=== PATIENT | female | born 1965 | race Hispanic/Latino ===

== ENCOUNTER 2020-11-29 20:57 | Emergency (ER) | payer BC ==
[2020-11-29] MEDS ORDERED: HYDROCODONE/APAP 5/325 MG TAB ONE (21:57)
[2020-11-29] MEDS ORDERED: MORPHINE 2 MG/ML SYR ONE ×2 (22:18→22:55)
--- NOTE | 2020-11-29 22:53 | ER ---
Nurse[facility] Notes [facility] Name: Yoli Kapadia Age: 55 yrs Sex: Female : 1965 Arrival Date: 11/29/2020 Time: 20:58 Bed 5 Private MD: Diagnosis: Left Distal Radius Fracture Presentation: 11/29 21:21 Chief complaint: Patient states: Fall in the shower at 2030 tonight. L wrist pain and ll1 swelling since. Pain radiates up entire L arm. + hit head, but denies LOC. Coronavirus screen: Client denies travel out of the [place] in the last 14 days. At this time, the client does not indicate any symptoms associated with coronavirus-19. Ebola Screen: Patient denies travel to an Ebola-affected area in the 21 days before illness onset. Initial Sepsis Screen: Does the patient meet any 2 criteria? No. Patient's initial sepsis screen is negative. Does the patient have a suspected source of infection? Yes: Bone or joint infection. Risk Assessment: Do you want to hurt yourself or someone else? Patient reports no desire to harm self or others. Onset of symptoms was November 29, 2020. 21:21 Method Of Arrival: Wheelchair ll1 21:21 Acuity: MAGNUS 3 ll1 Triage Assessment: 21:45 General: Appears uncomfortable. Injury Description: FALL, SWELLING TO THE LEFT WRIST. rv Historical: - Allergies: 21:23 No Known Allergies; ll1 - PMHx: 21:23 High Cholesterol; ll1 - PSHx: 21:23 endometriosis sx; ll1 - Immunization history:: Flu vaccine is up to date. - Social history:: Smoking status: Patient denies any tobacco usage or history of. Screenin:45 Abuse screen: Denies threats or abuse. Denies injuries from another. Nutritional rv screening: No deficits noted. Tuberculosis screening: No symptoms or risk factors identified. Fall Risk None identified. Assessment: 21:44 General: Appears uncomfortable, Behavior is cooperative, crying. Pain: Complains of rv pain in left wrist. Neuro: Level of Consciousness is awake, alert, obeys commands, Oriented to person, place, time, situation. Cardiovascular: Patient's skin is warm and dry. Respiratory: Airway is patent. Derm: Skin is intact. Musculoskeletal: Swelling present in left wrist. 22:40 Reassessment: Verbal order for Morphine 2mg IV now before splinting by TANJA Hernandez. lp1 Vital Signs: 21:21 BP 126 / 72; Pulse 67; Resp 17; Temp 98.9; Pulse Ox 100% ; Weight 53.52 kg; Height 5 ll1 ft. 1 in. (154.94 cm); Pain 10/10; 23:13 BP 121 / 76; Pulse 68; Resp 16; Temp 98.5; Pulse Ox 100% on R/A; rv 21:21 Body Mass Index 22.30 (53.52 kg, 154.94 cm) ll1 ED Course: 20:58 Patient arrived in ED. cl3 21:22 Triage completed. ll1 21:23 Arm band placed on. ll1 21:32 Satinder Curtis, GEOVANNY is Primary Nurse. rv 21:39 Bert Briscoe PA is PHCP. cp 21:39 Ash Camp MD is Attending Physician. cp 21:45 Patient has correct armband on for positive identification. Pulse ox on. NIBP on. rv 22:01 Inserted saline lock: 22 gauge in right hand, using aseptic technique. rv 22:10 Wrist Left (3 View) XRAY In Process Unspecified. EDMS 22:51 Monty Perez MD is Referral Physician. cp 23:05 Orthoglass splint: Sugar tong splint applied on Sling applied to left arm. oe 23:12 No provider procedures requiring assistance completed. IV discontinued, intact, rv bleeding controlled, No redness/swelling at site. Pressure dressing applied. Administered Medications: 21:43 Drug: [place] (HYDROcodone-acetaminophen) 5 mg-325 mg 1 tabs Route: PO; rv 23:13 Follow up: Response: No adverse reaction; RASS: Alert and Calm (0) rv 21:53 CANCELLED (Physician Discretion): fentaNYL (PF) 25 mcg IVP once; RASS on ADMIN: cp Combtv4, Very Agttd3, Agttd2, Rstlss1, AlertClm0, Drwsy-1, Lt Sdtn-2, Mod Sdtn-3, Dp Sdtn-4, UnArsble-5 22:02 Drug: morphine 2 mg Route: IVP; Site: right hand; rv 23:13 Follow up: Response: No adverse reaction; RASS: Alert and Calm (0) rv 22:44 Drug: morphine 2 mg Route: IVP; Site: right hand; lp1 23:13 Follow up: Response: No adverse reaction; Marked relief of symptoms; Pain is decreased; rv RASS: Alert and Calm (0) Outcome: 22:52 Discharge ordered by MD. cp 23:12 Discharged to home ambulatory. rv 23:12 Condition: good 23:12 Discharge instructions given to patient, Instructed on discharge instructions, follow up and referral plans. medication usage, Demonstrated understanding of instructions, follow-up care, medications, splint care, Prescriptions given X 1. 23:13 Patient left the ED. rv Signatures: Dispatcher [employer] EDMS Chloe Arceo RN RN lp1 Bert Briscoe PA PA cp Espinosa, Orlando oe Vicente, Ronaldo, RN RN rv Reagan Blankenship cl3 Agnes Blankenship RN RN ll1
--- NOTE | 2020-11-29 22:53 | EDPHYS ---
Physician Documentation [facility] Name: Yoli Kapadia Age: 55 yrs Sex: Female : 1965 Arrival Date: 11/29/2020 Time: 20:58 Bed 5 Private MD: ED Physician Ash Camp HPI: 11/29 21:55 This 55 yrs old Female presents to ER via Wheelchair with complaints of Wrist cp Injury. 21:55 The patient or guardian reports decreased range of motion, injury, pain, swelling, cp tenderness. The complaints affect the left wrist diffusely. Context: The problem was sustained at home, resulted from a fall, while in shower. Onset: The symptoms/episode began/occurred tonight. 21:55 Associated signs and symptoms: Pertinent negatives: cyanosis distally, decreased cp sensation distally. 21:55 Patient reports she struck back of head but no LOC and denies headache. cp Historical: - Allergies: 21:23 No Known Allergies; ll1 - PMHx: 21:23 High Cholesterol; ll1 - PSHx: 21:23 endometriosis sx; ll1 - Immunization history:: Flu vaccine is up to date. - Social history:: Smoking status: Patient denies any tobacco usage or history of. ROS: 21:56 Constitutional: Negative for fever. cp 21:56 Cardiovascular: Negative for chest pain. 21:56 Respiratory: Negative for cough, shortness of breath. 21:56 Abdomen/GI: Negative for abdominal pain, nausea, vomiting, and diarrhea. 21:56 MS/extremity: Positive for injury or acute deformity, decreased range of motion, swelling, tenderness, of the left wrist. 21:56 Neuro: Negative for altered mental status, headache, loss of consciousness, syncope. 21:56 All other systems are negative. Exam: 21:57 Head/Face: Normocephalic, atraumatic. cp 21:57 Constitutional: The patient appears in no acute distress, alert, awake, non-toxic, well developed, well nourished. 21:57 Eyes: Pupils: equal, round, and reactive to light and accomodation, Conjunctiva: normal. 21:57 Neck: C-spine: vertebral tenderness, is not appreciated, crepitus, is not appreciated, ROM/movement: is normal, is supple, without pain, no range of motions limitations. 21:57 Chest/axilla: Inspection: normal. 21:57 Cardiovascular: Rate: normal. 21:57 Respiratory: the patient does not display signs of respiratory distress, Respirations: normal, no use of accessory muscles, no retractions, labored breathing, is not present. 21:57 Back: pain, is absent, ROM is normal, vertebral tenderness, is not appreciated. 21:57 Musculoskeletal/extremity: Extremities: grossly normal except: noted in the left wrist: decreased ROM, deformity, pain, swelling, tenderness, Perfusion: the extremity is normally perfused throughout, Severe pain noted. Vital Signs: 21:21 BP 126 / 72; Pulse 67; Resp 17; Temp 98.9; Pulse Ox 100% ; Weight 53.52 kg; Height 5 ll1 ft. 1 in. (154.94 cm); Pain 10/10; 23:13 BP 121 / 76; Pulse 68; Resp 16; Temp 98.5; Pulse Ox 100% on R/A; rv 21:21 Body Mass Index 22.30 (53.52 kg, 154.94 cm) ll1 Procedures: 23:15 Splinting: Splint applied to left wrist using Orthoglass splint, sling, sugar tong cp type. applied by tech. Examined by me, post splint application: neurovascular intact, Patient tolerated well. MDM: 21:47 Patient medically screened. cp 22:00 Differential diagnosis: dislocation, open fracture, closed fracture, multiple trauma. cp 22:51 Data reviewed: vital signs, nurses notes, radiologic studies, plain films. cp 22:51 Test interpretation: by ED physician or midlevel provider: xrays of left wrist show cp mildly displaced distal left radius fracture with left ulna styloid fracture. Counseling: I had a detailed discussion with the patient and/or guardian regarding: the historical points, exam findings, and any diagnostic results supporting the discharge/admit diagnosis, radiology results, the need for outpatient follow up, for definitive care, a orthopedic surgeon, to return to the emergency department if symptoms worsen or persist or if there are any questions or concerns that arise at home. Response to treatment: the patient's symptoms have markedly improved after treatment, and as a result, I will discharge patient. 22:55 ED course: No results found on website of [facility] prescription monitor program. cp 11/29 21:42 Order name: Wrist Left (3 View) XRAY bb 11/29 21:53 Order name: IV; Complete Time: 22:01 cp Administered Medications: 21:43 Drug: [place] (HYDROcodone-acetaminophen) 5 mg-325 mg 1 tabs Route: PO; rv 23:13 Follow up: Response: No adverse reaction; RASS: Alert and Calm (0) rv 21:53 CANCELLED (Physician Discretion): fentaNYL (PF) 25 mcg IVP once; RASS on ADMIN: cp Combtv4, Very Agttd3, Agttd2, Rstlss1, AlertClm0, Drwsy-1, Lt Sdtn-2, Mod Sdtn-3, Dp Sdtn-4, UnArsble-5 22:02 Drug: morphine 2 mg Route: IVP; Site: right hand; rv 23:13 Follow up: Response: No adverse reaction; RASS: Alert and Calm (0) rv 22:44 Drug: morphine 2 mg Route: IVP; Site: right hand; lp1 23:13 Follow up: Response: No adverse reaction; Marked relief of symptoms; Pain is decreased; rv RASS: Alert and Calm (0) Disposition: 23:15 Chart complete. 11/30 05:16 Co-signature as Attending Physician, Ash Camp MD. [facility] Disposition: 11/29/20 22:52 Discharged to Home. Impression: Left Distal Radius Fracture. - Condition is Stable. - Discharge Instructions: Wrist Fracture Treated With Immobilization. - Prescriptions for Tylenol- Codeine #3 300-30 mg Oral Tablet - take 2 tablets by ORAL route every 4-6 hours As needed; 20 tablet. - Medication Reconciliation Form, Thank You Letter, Antibiotic Education, Prescription Opioid Use form. - Follow up: Monty Perez MD; When: 2 - 3 days; Reason: Recheck today's complaints. - Problem is new. - Symptoms have improved. Signatures: Dispatcher [employer] Deysi Chandra RN RN bb Chloe Arceo RN RN lp1 Bert Briscoe PA PA cp Satinder Curtis RN RN rv Agnes Blankenship RN RN 1 Ash Camp MD MD 7 Corrections: (The following items were deleted from the chart) 11/29 21:53 21:53 fentaNYL (PF) 25 mcg IVP once; RASS on ADMIN: Combtv4, Very Agttd3, Agttd2, cp Rstlss1, AlertClm0, Drwsy-1, Lt Sdtn-2, Mod Sdtn-3, Dp Sdtn-4, UnArsble-5 ordered. cp 23:13 22:52 11/29/2020 22:52 Discharged to Home. Impression: Left Distal Radius Fracture. rv Condition is Stable. Forms are Medication Reconciliation Form, Thank You Letter, Antibiotic Education, Prescription Opioid Use. Follow up: Monty Perez; When: 2 - 3 days; Reason: Recheck today's complaints. Problem is new. Symptoms have improved. cp
[2020-11-30 04:10] VITALS: O2SAT 100
[2020-11-30 04:12] VITALS: BP 121/76; TEMP 98.5
--- NOTE | 2020-12-01 11:59 | RAD REPORT ---
EXAM DESCRIPTION: RAD - Wrist Left 3 View - 11/29/2020 10:10 pm CLINICAL HISTORY: Pain;Deformity. COMPARISON: None. TECHNIQUE: Three views of the left wrist: PA, oblique, and lateral. FINDINGS: Acute mildly displaced distal radius fracture. No obvious intraarticular extension. Acute minimally displaced ulnar styloid process fracture. Mild ulnar positive variance by 0.2 cm. Osteopeni a. IMPRESSION: Acute mildly displaced distal radius and ulnar styloid process fractures. Osteopenia. Electronically signed by: Ami Lange MD 11/29/2020 10:37 PM CDT Due to temporary technical issues with the PACS/Fluency reporting system, reports are being signed by the in house radiologist without review as a courtesy to ensure prompt reporting. The interpreting r adiologist is fully responsible for the content of the report.
== END 2020-11-29 23:13 | disposition home or self-care (01) ==
LOC: ER 20:57
PROC: 2W3DX1Z Immobilization of Left Lower Arm using Splint (ICD-10-PCS; principal; 2020-11-29)
DX: S52.502A Unspecified fracture of the lower end of left radius, initial encounter for closed fracture (principal); W19.XXXA Unspecified fall, initial encounter; Y93.E1 Activity, personal bathing and showering; Y92.002 Bathroom of unspecified non-institutional (private) residence as the place of occurrence of the external cause
CPT/HCPCS: 73110; 29125; J2270 ×2; 96374; 99284

== ENCOUNTER 2022-04-10 10:45 | Emergency (ER) | payer BC ==
--- OUTSIDE RECORDS SUMMARY | 2022-04-10 10:48 | XMS REPORT | Continuity of Care Document ---
:1965 Author Organization [facility] t Address [address] [place] [address] [address] [place] [address] Care Team Providers Name Role Phone Moises Priest Attending Clinician Payers Payer Name Policy Type Policy Number Effective Date Expiration Date S ource Problems Condition Condition Condition Status Onset Resolution Last Treating Co mments Source Name Details Category Date Date Treatment Clinician Date Recurrent Recurrent Disease Active 2011-09 [facility] UTI UTI 0-09 College 00:00: of 00 Medicin e Chronic Chronic Disease Active [facility] interstiti interstiti 7-10 Co llege al al 00:00: of cystitis cystitis 00 Medici n e Chronic Chronic Disease Active [facility] interstiti interstiti 6-05 Co llege al al 00:00: of cystitis cystitis 00 Medici n e Urinary Urinary Disease Active [facility] tract tract 4-03 College infection, infection, 00:00: of site not site not 00 Medici n specified specified e Recurrent Recurrent Disease Active [facility] UTI UTI 2-16 College 00:00: of 00 Medicin e Bilateral Bilateral Disease Active [facility] flank pain flank pain 2-16 Co llege 00:00: of 00 Medicin e Allergies, Adverse Reactions, Alerts This patient has no known allergies or adverse reactions. Social History Social Habit Start Date Stop Date Quantity Comments Source Alcohol intake [facility] Sex Assigned At F [facility] Smoking Status Start Date Stop Date Source Never smoker [facility] o f [facility] Medications Ordered Filled Start Stop Current Ordering Indication Dosage Frequency Signature Comments Components Source Medication Medication Date Date Medication? Clinician (SIG) Name Name ranitidine 2019 2019- No [id number] 75mg Take 75 mg [facility] (ACID 04-27 by mouth [employer]) 75 16:05: 00:00 two times of MG tablet 16 :00 daily. Medicin e nitrofurant Yes 100mg Take 1 Cap Mike oin, 8-23 by mouth [place] 00:00: two times o f l-monohydra 00 daily. Medici n te, e (MACROBID) [address] 2 g Philipp gurdeep (ESTRACE 04-27 vaginally [facility] VAGINAL) 00:00: every day of 0.1 MG/GM 00 for the Medicin vaginal first 2 e cream weeks then apply 2g vaginally two times per week after. nitrofurant Yes Take one Ba ylor oin, 23 tablet by [place] 00:00: mouth of l-monohydra 00 after Medicin te, intercours e (MACROBID) e 100 MG capsule sulfamethox 2017-09 2019- No [id number] 1{tbl} Take 1 Tab Mike azole-trime 09-10 by mouth [facility] thoprim 00:00: 00:00 two times of (BACTRIM 00 :00 daily. Medicin DS) 800-160 e MG per tablet Vitamin E 2017-09 Yes [id number] Take by [facility] 400 UNIT 1 mouth. [place] TABS 15:53: of 38 Medicin e estradiol 2017-09 2019- No [id number] 1g Place 1 g Mike (ESTRACE 09-05 vaginally [facility] VAGINAL) 00:00: 00:00 3 times of 0.1 MG/GM 00 :00 weekly. Medicin vaginal e cream Cholecalcif Yes [id number] Take by [facility] sofi 6-30 mouth. [place] (VITAMIN 15:19: of D3) 1000 53 Medicin UNIT TABS e nitrofurant 2011-09 2019- No [id number] 50mg Take 1 Cap Mike oin 004-27 by mouth [place] (MACRODANTI 00:00: 00:00 at of N) 50 MG 00 :00 bedtime. Medicin capsule e Silodosin Yes [id number] 8mg Take 8 mg [facility] (RAPAFLO) 8 7-10 by mouth [facility] MG CAPS 00:00: daily. of 00 Medicin e Silodosin 8 Yes [id number] 1{capsu Take 1 Cap [facility] MG CAPS 02-07 le} by [facility] 00:00: at of 00 bedtime. Medicin e hydrOXYzine 2019- No [id number] 25mg Take 1 Tab [facility] (ATARAX) 25 02-07 by mouth [facility] MG tablet 00:00: 00:00 at of 00 :00 bedtime. Medicin e gabapentin 2019- No [id number] 100mg Take 1 Cap [facility] (NEURONTIN) 02-07 by mouth 3 C ollege 100 MG 00:00: 00:00 times of capsule 00 :00 daily. Medicin e nitrofurant 2019- No [id number] 50mg Take 1 Cap Mike oin 12-06 by [facility] (MACRODANTI 00:00: 00:00 at of N) 50 MG 00 :00 bedtime. Medicin capsule e Meth-Hyo-M 2019- No [id number] 60mg Take 60 mg [facility] Bl-Na 12-06 by [facility] Phos-Ph Vincent 00:00: 00:00 two times of (MAURY) 120 00 :00 daily. Medicin MG CAPS e nitrofurant 2019- No [id number] 100mg Take 1 Cap Mike oin, 11-29 by mouth. [place] macro[facility]a 00:00: 00:00 1 cap by o f l-monohydra 00 :00 mouth Medicin te, daily. e (MACROBID) 100 MG capsule sulfamethox 2019- No 1{tbl} Take 1 Tab [facility] azole-trime 10-29 by mouth [facility] thoprim 00:00: 00:00 two times of (BACTRIM 00 :00 daily. Medicin DS) 800-160 e MG per tablet Vital Signs Vital Name Observation Time Observation Value Comments Source Body height 2019-04-27 16:04:00 154.9 cm [facility] Body weight 2019-04-27 16:04:00 49.896 kg [facility] BMI 2019-04-27 16:04:00 20.78 kg/m2 [facility] Procedures This patient has no known procedures. Plan of Care Planned Activity Planned Date Details Comments Source Future Scheduled [facility]: [facility]code = of Medicine 84027-0] Future Scheduled URINE CULTURE [code Ordered: 04/27/20 19 [facility] Test = 630-4] of Medicine Future Scheduled COLON CANCER [facility] Test SCREENING: of Medicine COLONOSCOPY [code = COLON CANCER SCREENING: COLONOSCOPY] Future Scheduled TETANUS SHOT [facility] Test (ADULT) [code = of Medicine TETANUS SHOT (ADULT)] Future Scheduled HEPATITIS C [facility] Test SCREENING [code = of Medicin e HEPATITIS C SCREENING] Future Scheduled HIV SCREENING [code [facility] or [place] Test = HIV SCREENING] of Medicine Future Scheduled CERVICAL CANCER [facility] C ollege Test SCREENING 3 YEAR of Medicine FOLLOW UP [code = CERVICAL CANCER SCREENING 3 YEAR FOLLOW UP] Future Scheduled FLU VACCINE > 6 [facility] C ollege Test MONTHS [code = FLU of Medici ne VACCINE > 6 MONTHS] Future Scheduled MAMMOGRAM ANNUAL [facility] Test [code = MAMMOGRAM of Medicin e ANNUAL] Future Scheduled CT ABDOMEN PELVIS W 1 Occurrences [facility] Test WO CONTRAST [code = starting 04/27/2019 o f Medicine 04116-8] until 11/26/2019 Encounters Start End Encounter Admission Attending Care Care Encounter Source Date/Time Date/Time Type Type Clinicians Facility Department ID 2019-04-27 2019-04-27 Office VANI Wilson [id number] [facility] 10:33:28 11:03:28 Visit Basil AMBULATOR [id number] College Y [id number] of [id number] Medi jose 300 e Results This patient has no known results.
[2022-04-10] MEDS ORDERED: MAGNES/ALUMIN/SIMET 30ML UCUP ONE (11:43)
[2022-04-10] MEDS ORDERED: LIDOCAINE VISCOUS 2% SOLN 15 ML UDC ONE (11:43)
[2022-04-10] MEDS ORDERED: dexAMETHasone 10 MG/ML VIAL ONE (11:43)
[2022-04-10] MEDS ORDERED: ONDANSETRON 4 MG/2 ML VIAL ONE (11:43)
[2022-04-10] MEDS ORDERED: KETOROLAC 30 MG/ML INJ ONE (11:43)
[2022-04-10] MEDS ORDERED: NA CHLORIDE 0.9% 1,000 ML ONE (11:44)
[2022-04-10 11:58] LABS: Urine Blood Trace-intact (Negative); Urine Glucose Negative (Negative); Urine Protein Negative (Negative); Urine pH 6.5 (5.0-7.0)
[2022-04-10 12:01] LABS: Hematocrit 41.7 % (36.0-45.0); Lymphocytes % 47.6 % (15.3-44.8); MCV 87.1 fL (80-100); MPV 8.2 fL (7.6-11.3); RBC Red Blood Cell Count 4.78 M/uL (3.86-4.86)
[2022-04-10 12:09] LABS: Bilirubin Total 0.5 mg/dL (0.2-1.0); Potassium 3.8 mmol/L (3.5-5.1); Protein, Total 8.2 g/dL (6.4-8.2)
--- NOTE | 2022-04-10 12:39 | RAD REPORT ---
EXAM DESCRIPTION: CT - Soft Tissue Neck W/Contr CLINICAL HISTORY: throat pain Neck pain and swelling COMPARISON: No comparisons TECHNIQUE All CT scans are performed using dose optimization technique as appropriate and may includ e automated exposure control or mA/KV adjustment according to patient size. FINDINGS: Nasopharyngeal tissues are normal in appearance. Fossa Rosenmller are normal. Parapharyngeal fat triangles are symmetric. Tongue base structures are normal. Epiglottis and aryepiglottic folds are normal. Piriform sinuses are well aerated. The vocal cords are normal in appearance. Salivary glands are normal in appearance. Upper lung geller are clear. Included intracranial contents are unremarkable. IMPRESSION: Negative examination.
--- NOTE | 2022-04-10 13:12 | EDPHYS ---
Physician Documentation [facility] Name: Yoli Kapadia Age: 56 yrs Sex: Female : 1965 Arrival Date: 04/10/2022 Time: 10:47 Bed 9 Private MD: Akiko Wang C ED Physician Bert Graves HPI: 04/10 13:01 This 56 yrs old Female presents to ER via Ambulatory with complaints of Sore ambrocio Throat. 13:01 The patient presents with sore throat. The patient describes throat pain as constant, ambrocio raw. Onset: The symptoms/episode began/occurred 2 day(s) ago. Severity of symptoms: At their worst the symptoms were moderate, in the emergency department the symptoms are unchanged. Modifying factors: The symptoms are alleviated by nothing, the symptoms are aggravated by swallowing. Associated signs and symptoms: The patient has no apparent associated signs or symptoms. The patient has not experienced similar symptoms in the past. Historical: - Allergies: 11:11 No Known Allergies; ap3 - PMHx: 11:11 High Cholesterol; ap3 - Immunization history:: Client reports having NOT received the Covid vaccine. - Social history:: Smoking status: Patient denies any tobacco usage or history of. Patient uses alcohol, occasionally. ROS: 13:02 Constitutional: Negative for fever, chills, and weight loss, Eyes: Negative for injury, ambrocio pain, redness, and discharge, Neck: Negative for injury, pain, and swelling, Cardiovascular: Negative for chest pain, palpitations, and edema, Respiratory: Negative for shortness of breath, cough, wheezing, and pleuritic chest pain, Abdomen/GI: Negative for abdominal pain, nausea, vomiting, diarrhea, and constipation, Back: Negative for injury and pain, : Negative for injury, bleeding, discharge, and swelling, MS/Extremity: Negative for injury and deformity, Skin: Negative for injury, rash, and discoloration, Neuro: Negative for headache, weakness, numbness, tingling, and seizure, Psych: Negative for depression, anxiety, suicide ideation, homicidal ideation, and hallucinations, Allergy/Immunology: Negative for hives, rash, and allergies, Endocrine: Negative for neck swelling, polydipsia, polyuria, polyphagia, and marked weight changes, Hematologic/Lymphatic: Negative for swollen nodes, abnormal bleeding, and unusual bruising. 13:02 ENT: Positive for sore throat, KNOW COVID POSITIVE WITH SYMPTOMS X 1 WEEK. Exam: 13:02 Constitutional: This is a well developed, well nourished patient who is awake, alert, ambrocio and in no acute distress. Head/Face: Normocephalic, atraumatic. Eyes: Pupils equal round and reactive to light, extra-ocular motions intact. Lids and lashes normal. Conjunctiva and sclera are non-icteric and not injected. Cornea within normal limits. Periorbital areas with no swelling, redness, or edema. Neck: Trachea midline, no thyromegaly or masses palpated, and no cervical lymphadenopathy. Supple, full range of motion without nuchal rigidity, or vertebral point tenderness. No Meningismus. Chest/axilla: Normal chest wall appearance and motion. Nontender with no deformity. No lesions are appreciated. Cardiovascular: Regular rate and rhythm with a normal S1 and S2. No gallops, murmurs, or rubs. Normal PMI, no JVD. No pulse deficits. Respiratory: Lungs have equal breath sounds bilaterally, clear to auscultation and percussion. No rales, rhonchi or wheezes noted. No increased work of breathing, no retractions or nasal flaring. Abdomen/GI: Soft, non-tender, with normal bowel sounds. No distension or tympany. No guarding or rebound. No evidence of tenderness throughout. Back: No spinal tenderness. No costovertebral tenderness. Full range of motion. Skin: Warm, dry with normal turgor. Normal color with no rashes, no lesions, and no evidence of cellulitis. MS/ Extremity: Pulses equal, no cyanosis. Neurovascular intact. Full, normal range of motion. Neuro: Awake and alert, GCS 15, oriented to person, place, time, and situation. Cranial nerves II-XII grossly intact. Motor strength 5/5 in all extremities. Sensory grossly intact. Cerebellar exam normal. Normal gait. Psych: Awake, alert, with orientation to person, place and time. Behavior, mood, and affect are within normal limits. 13:02 ENT: Posterior pharynx: Tonsils: bilaterally enlarged, with erythema, Uvula: normal, midline, swelling, that is mild, erythema, that is mild, exudate, is not appreciated, peritonsillar mass, is not appreciated, pooling of secretions, is not appreciated. Vital Signs: 11:09 BP 116 / 74; Pulse 83; Resp 18; Temp 98.4; Pulse Ox 100% ; Weight 50.35 kg; Height 5 ap3 ft. 1 in. (154.94 cm); 12:26 BP 126 / 78; Pulse 60; Resp 16; Pulse Ox 100% on R/A; bm7 13:02 BP 127 / 66; Pulse 62; Resp 16; Temp 98.1(TE); Pulse Ox 100% on R/A; bm7 11:09 Body Mass Index 20.97 (50.35 kg, 154.94 cm) ap3 MDM: 10:58 Patient medically screened. [facility] 13:07 Differential diagnosis: epiglottitis, group A strep tonsillitis, influenza, laryngitis, ambrocio peritonsillar abscess pharyngitis, tonsillitis, upper respiratory infection, uvulitis. Data reviewed: vital signs, nurses notes, lab test result(s), radiologic studies, CT scan. Data interpreted: chief wellness officer: rate is 62 beats/min, rhythm is regular, Pulse oximetry: on room air is 100 %. Counseling: I had a detailed discussion with the patient and/or guardian regarding: the historical points, exam findings, and any diagnostic results supporting the discharge/admit diagnosis, lab results, radiology results, the need for outpatient follow up, for definitive care, an ENT specialist, a family practitioner. 04/10 10:58 Order name: CBC with Diff; Complete Time: 12:47 [facility] 04/10 10:58 Order name: Comprehensive Metabolic Panel; Complete Time: 12:47 [facility] 04/10 10:58 Order name: [place] Screen Profile; Complete Time: 12:47 [facility] 04/10 10:58 Order name: Strep; Complete Time: 12:47 [facility] 04/10 11:32 Order name: Urine Culture [facility] 04/10 11:58 Order name: Urine Dipstick-Ancillary; Complete Time: 12:47 [facility] 04/10 10:58 Order name: CT Soft Tissue Neck W/contr; Complete Time: 12:47 [facility] 04/10 11:59 Order name: Urine --Ancillary (enter results); Complete Time: 12:47 em[facility] 04/10 12:18 Order name: Throat Culture [facility] 04/10 11:32 Order name: Urine Dipstick-Ancillary (obtain specimen); Complete Time: 11:59 [facility] 04/10 11:32 Order name: Urine Test (obtain specimen); Complete Time: 11:59 [facility] 04/10 13:18 Order name: PO challenge; Complete Time: 13:26 ambrocio Administered Medications: 11:57 Drug: Zofran (Ondansetron) 4 mg Route: IVP; Site: right antecubital; bm7 12:25 Follow up: Response: No adverse reaction bm7 11:58 Drug: NS 0.9% 1000 ml Route: IV; Rate: 1 bolus; Site: right antecubital; bm7 13:27 Follow up: IV Status: Completed infusion; IV Intake: 1000ml bm7 11:58 Drug: GI Cocktail without - (Maalox Suspension 30 ml, Lidocaine Liquid 2 % 15 bm7 ml) Route: PO; 13:27 Follow up: Response: No adverse reaction bm7 11:58 Drug: Decadron - Dexamethasone 10 mg Route: IVP; Site: right antecubital; bm7 12:25 Follow up: Response: No adverse reaction bm7 11:58 Drug: Ketorolac 15 mg Route: IVP; Site: right antecubital; bm7 13:26 Follow up: Response: No adverse reaction bm7 Disposition Summary: 04/10/22 13:11 Discharge Ordered Location: Home [facility] Problem: new ambrocio Symptoms: have improved ambrocio Condition: Stable ambrocio Diagnosis - Acute tonsillitis, unspecified ambrocio - Acute pharyngitis, unspecified ambrocio - Coronavirus infection, unspecified ambrocio - SARS-associated coronavirus as the cause of diseases classified elsewhere ambrocio Followup: ambrocio - With: Akiko Wang MD - When: 2 - 3 days - Reason: Recheck today's complaints, Continuance of care, Re-evaluation by your physician Discharge Instructions: - Discharge Summary Sheet kb - Pharyngitis ambrocio - Sore Throat ambrocio - Tonsillitis ambrocio - Tonsillitis, [id number] [facility] - COVID-19 [facility] - COVID-19 Frequently Asked Questions [facility] - 10 Things You Can Do to Manage Your COVID-19 Symptoms at Home - [facility] - COVID-19: Quarantine vs. Isolation - [facility] - Prevent the Spread of COVID-19 if You Are Sick - [facility] Forms: - Medication Reconciliation Form [facility] - Thank You Letter ambrocio - Antibiotic Education ambrocio - Prescription Opioid Use [facility] Prescriptions: - dexamethasone 2 mg Oral tablet - take 1 tablet by ORAL route 2 times per day; 6 tablet; Refills: 0, Product kb Selection Permitted - Lidocaine Viscous - take 10 milliliter by ORAL route 5 times per day; 90 milliliter; Refills: 0, kb Product Selection Permitted Signatures: Dispatcher [employer] Bert Atkins MD MD cha Prokisch, Amanda, RN RN ap3 Josie Carranza RN RN bm7
--- NOTE | 2022-04-10 13:12 | ER ---
Nurse's Notes [facility] Name: Yoli Kapadia Age: 56 yrs Sex: Female : 1965 Arrival Date: 04/10/2022 Time: 10:47 Bed 9 Private MD: Akiko Wang C Diagnosis: Acute tonsillitis, unspecified;Acute pharyngitis, unspecified;Coronavirus infection, unspecified;SARS-associated coronavirus as the cause of diseases classified elsewhere Presentation: 04/10 11:09 Chief complaint: Patient states: she tested positive for COVID 04/02/2022, and has had a ap3 severe sore throat. It is reported Dr. Wang wanted the patient evaluated for a possible abscess. Patient also reports lower back pain with foul smelling urine. Coronavirus screen: Client reports previous positive COVID test result. Date of collection: April 02, 2022. Ebola Screen: No symptoms or risks identified at this time. Initial Sepsis Screen: Does the patient meet any 2 criteria? No. Patient's initial sepsis screen is negative. Does the patient have a suspected source of infection? Yes: Other: COVID infection. Risk Assessment: Do you want to hurt yourself or someone else? Patient reports no desire to harm self or others. Onset of symptoms was April 02, 2022. 11:09 Method Of Arrival: Ambulatory ap3 11:09 Acuity: MAGNUS 3 ap3 Triage Assessment: 11:12 General: Appears uncomfortable, Behavior is calm, quiet. Pain: Complains of pain in ap3 throat Pain currently is 10 out of 10 on a pain scale. EENT: Reports pain when swallowing. EENT: Neuro: Level of Consciousness is awake, alert, obeys commands. Cardiovascular: Patient's skin is warm and dry. Respiratory: Airway is patent Respiratory effort is even, unlabored, Respiratory pattern is regular, symmetrical. : Reports urinary frequency, foul smelling urine. Historical: - Allergies: 11:11 No Known Allergies; ap3 - PMHx: 11:11 High Cholesterol; ap3 - Immunization history:: Client reports having NOT received the Covid vaccine. - Social history:: Smoking status: Patient denies any tobacco usage or history of. Patient uses alcohol, occasionally. Screenin:14 Abuse screen: Denies threats or abuse. Nutritional screening: No deficits noted. ap3 Tuberculosis screening: No symptoms or risk factors identified. 12:04 Fall Risk None identified. bm7 Assessment: 12:04 Reassessment: Patient and/or family updated on plan of care and expected duration. Pain bm7 level reassessed. Patient is alert, oriented x 3, equal unlabored respirations, skin warm/dry/pink. General: Appears in no apparent distress. Behavior is calm, cooperative, appropriate for age, quiet. Pain: Complains of pain in thraot. Neuro: No deficits noted. Cardiovascular: No deficits noted. Respiratory: Airway is patent Respiratory effort is even, unlabored, Respiratory pattern is regular, symmetrical, Breath sounds are coarse bilaterally. GI: No deficits noted. No signs and/or symptoms were reported involving the gastrointestinal system. : No deficits noted. No signs and/or symptoms were reported regarding the genitourinary system. EENT: Oral mucosa is moist. Throat is reddened. Derm: No deficits noted. No signs and/or symptoms reported regarding the dermatologic system. Musculoskeletal: No deficits noted. No signs and/or symptoms reported regarding the musculoskeletal system. 13:00 Reassessment: Patient and/or family updated on plan of care and expected duration. Pain bm7 level reassessed. Vital Signs: 11:09 BP 116 / 74; Pulse 83; Resp 18; Temp 98.4; Pulse Ox 100% ; Weight 50.35 kg; Height 5 ap3 ft. 1 in. (154.94 cm); 12:26 BP 126 / 78; Pulse 60; Resp 16; Pulse Ox 100% on R/A; bm7 13:02 BP 127 / 66; Pulse 62; Resp 16; Temp 98.1(TE); Pulse Ox 100% on R/A; bm7 11:09 Body Mass Index 20.97 (50.35 kg, 154.94 cm) ap3 ED Course: 10:47 Patient arrived in ED. as 10:47 Akiko Wang MD is Private Physician. as 10:56 Bert Graves MD is Attending Physician. ambrocio 11:11 Triage completed. ap3 11:14 Arm band placed on right wrist. ap3 11:27 Josie Carranza, GEOVANNY is Primary Nurse. bm7 11:30 Inserted saline lock: 20 gauge in right antecubital area, using aseptic technique. kc6 Blood collected. 11:31 [place] Screen Profile Sent. kc6 11:31 Strep Sent. kc6 11:31 Comprehensive Metabolic Panel Sent. kc6 11:31 CBC with Diff Sent. kc6 11:32 Patient has correct armband on for positive identification. Bed in low position. Call bm7 light in reach. Client placed on continuous cardiac and pulse oximetry monitoring. NIBP monitoring applied. Assisted to bathroom. 12:04 Warm blanket given. bm7 12:04 No provider procedures requiring assistance completed. Patient maintains SpO2 bm7 saturation greater than 95% on room air. 12:31 CT Soft Tissue Neck W/contr In Process Unspecified. EDMS 13:08 Akiko Wang MD is Referral Physician. [facility] 13:26 IV discontinued, intact, bleeding controlled, No redness/swelling at site. Pressure bm7 dressing applied. Administered Medications: 11:57 Drug: Zofran (Ondansetron) 4 mg Route: IVP; Site: right antecubital; bm7 12:25 Follow up: Response: No adverse reaction bm7 11:58 Drug: NS 0.9% 1000 ml Route: IV; Rate: 1 bolus; Site: right antecubital; bm7 13:27 Follow up: IV Status: Completed infusion; IV Intake: 1000ml bm7 11:58 Drug: GI Cocktail without - (Maalox Suspension 30 ml, Lidocaine Liquid 2 % 15 bm7 ml) Route: PO; 13:27 Follow up: Response: No adverse reaction bm7 11:58 Drug: Decadron - Dexamethasone 10 mg Route: IVP; Site: right antecubital; bm7 12:25 Follow up: Response: No adverse reaction bm7 11:58 Drug: Ketorolac 15 mg Route: IVP; Site: right antecubital; bm7 13:26 Follow up: Response: No adverse reaction bm7 Medication: 12:04 VIS not applicable for this client. bm7 Intake: 13:27 IV: 1000ml; Total: 1000ml. bm7 Outcome: 13:11 Discharge ordered by . ambrocio 13:26 Discharged to home ambulatory, with family. bm7 13:26 Condition: good 13:26 Discharge instructions given to patient, family, Instructed on discharge instructions, follow up and referral plans. medication usage, Demonstrated understanding of instructions, follow-up care, medications, Prescriptions given X 2. 13:27 Patient left the ED. bm7 Signatures: Dispatcher [employer] EDBert Marino MD MD cha Martinez, Amelia as Prokisch, Amanda, RN RN ap3 Josie Carranza RN RN bm7 Rohini Braga kc6
[2022-04-10 14:18] VITALS: O2SAT 100
[2022-04-10 14:36] VITALS: BP 127/66; TEMP 98.1
== END 2022-04-10 13:27 | disposition home or self-care (01) ==
LOC: ER 10:45
DX: U07.1 COVID-19 (principal); J03.90 Acute tonsillitis, unspecified; E78.00 Pure hypercholesterolemia, unspecified
CPT/HCPCS: 96361; 87070; 87088; 85025; 87086; 36415; 86308; 81025; 87081; 81003; 80053; 70491; 96375; 96374; 99284; J1100; J7030; J2405